=== PATIENT | female | born 1990 | race Caucasian/White ===

== ENCOUNTER 2020-01-01 12:47 | Outpatient (REF) | payer MEDICAID, SELFPAY ==
--- NOTE | 2020-01-01 12:59 | XR_ITS ---
EXAMINATION: XR BILATERAL HIPS WITH AP PELVIS CLINICAL INFORMATION: Bilateral hip pain. COMPARISON: None TECHNIQUE: 2 views of each hip. FINDINGS: RIGHT HIP: There is no visible acute fracture, dislocation or subluxation. There is no bony erosive changes. The soft tissues are normal. LEFT HIP: There is no visible acute fracture, dislocation subluxation. No bony erosive changes. No loose bodies. The soft tissues are normal. XR/XR hips CALVIN min 3V IMPRESSION: Unremarkable bilateral hip exam.
== END 2020-01-01 12:48 | disposition home or self-care (01) ==
LOC: HO.XRAY 12:47
PROVIDERS: PCP Internal Medicine Geriatric Medicine; Visit Provider Internal Medicine Geriatric Medicine
DX: G89.29 Other chronic pain (principal); M25.551 Pain in right hip; M25.552 Pain in left hip
CPT/HCPCS: 73522

== ENCOUNTER 2020-03-18 16:33 | Outpatient (REF) | payer MEDICAID, SELFPAY ==
--- NOTE | 2020-03-18 | XR_ITS ---
EXAMINATION: XR CERVICAL SPINE CLINICAL INFORMATION: Bilateral arm numbness COMPARISON: None TECHNIQUE: 6 views of the cervical spine, including bilateral oblique views, were obtained. FINDINGS: The vertebral alignment is normal. No intrinsic bony abnormality. The disc heights and neural foramina are well maintained. The endplates and posterior elements are normal. No fracture or subluxation. The surrounding prevertebral soft tissues are unremarkable. XR/XR cervical spine 5V IMPRESSION: Unremarkable examination.
== END 2020-03-18 16:34 | disposition home or self-care (01) ==
LOC: HO.XRAY 16:33
PROVIDERS: PCP Internal Medicine Geriatric Medicine; Visit Provider Emergency Medicine
DX: M25.50 Pain in unspecified joint (principal)
CPT/HCPCS: 72050

== ENCOUNTER 2021-05-03 15:28 | Outpatient (REF) | payer MEDICAID, SELFPAY ==
--- NOTE | ~2021-05-03 | XR_ITS ---
EXAMINATION: XR HIP, RIGHT XR HIP, LEFT CLINICAL INFORMATION: Bilateral hip pain. COMPARISON: Bilateral hip radiographs dated 01/01/2020. TECHNIQUE: AP and frog-leg lateral views of the right and left hip. FINDINGS: RIGHT HIP: No acute fracture or dislocation. No joint space narrowing or marginal osteophytes. No osseous erosion. No abnormal soft tissue calcification. LEFT HIP: No acute fracture or dislocation. No joint space narrowing or marginal osteophytes. No osseous erosion. No abnormal soft tissue calcification. XR/XR hip RT min 2V IMPRESSION: RIGHT HIP: Unremarkable examination. LEFT HIP: Unremarkable examination.
--- NOTE | ~2021-05-03 | XR_ITS ---
EXAMINATION: XR HIP, RIGHT XR HIP, LEFT CLINICAL INFORMATION: Bilateral hip pain. COMPARISON: Bilateral hip radiographs dated 01/01/2020. TECHNIQUE: AP and frog-leg lateral views of the right and left hip. FINDINGS: RIGHT HIP: No acute fracture or dislocation. No joint space narrowing or marginal osteophytes. No osseous erosion. No abnormal soft tissue calcification. LEFT HIP: No acute fracture or dislocation. No joint space narrowing or marginal osteophytes. No osseous erosion. No abnormal soft tissue calcification. XR/XR hip LT min 2V IMPRESSION: RIGHT HIP: Unremarkable examination. LEFT HIP: Unremarkable examination.
--- NOTE | ~2021-05-03 | XR_ITS ---
EXAMINATION: XR HAND, RIGHT XR HAND, LEFT CLINICAL INFORMATION: Pain. COMPARISON: None TECHNIQUE: AP, oblique, and lateral views of the right and left hand. FINDINGS: RIGHT HAND: No fracture or dislocation. Normal carpal alignment. No significant joint space narrowing or marginal osteophytes. No osseous erosion. No periarticular osteopenia. No abnormal soft tissue calcification. LEFT HAND: No fracture or dislocation. Normal carpal alignment. No significant joint space narrowing or marginal osteophytes. No osseous erosion. No periarticular osteopenia. No abnormal soft tissue calcification. XR/XR hand LT min 3V IMPRESSION: RIGHT HAND: Unremarkable examination. LEFT HAND: Unremarkable examination.
--- NOTE | ~2021-05-03 | XR_ITS ---
EXAMINATION: XR LUMBOSACRAL SPINE CLINICAL INFORMATION: Pain. COMPARISON: Lumbar spine radiograph dated 12/11/2017. TECHNIQUE: Three views of the lumbosacral spine. FINDINGS: The vertebral bodies and posterior elements are normal. The disc spaces are preserved and the vertebral alignment is normal. The paraspinal soft tissues are normal. XR/XR lumbar spine 2-3V IMPRESSION: Unremarkable examination.
--- NOTE | ~2021-05-03 | XR_ITS ---
EXAMINATION: XR HAND, RIGHT XR HAND, LEFT CLINICAL INFORMATION: Pain. COMPARISON: None TECHNIQUE: AP, oblique, and lateral views of the right and left hand. FINDINGS: RIGHT HAND: No fracture or dislocation. Normal carpal alignment. No significant joint space narrowing or marginal osteophytes. No osseous erosion. No periarticular osteopenia. No abnormal soft tissue calcification. LEFT HAND: No fracture or dislocation. Normal carpal alignment. No significant joint space narrowing or marginal osteophytes. No osseous erosion. No periarticular osteopenia. No abnormal soft tissue calcification. XR/XR hand RT min 3V IMPRESSION: RIGHT HAND: Unremarkable examination. LEFT HAND: Unremarkable examination.
== END 2021-05-03 15:29 | disposition home or self-care (01) ==
LOC: HO.XRAY 15:28
PROVIDERS: PCP Internal Medicine Geriatric Medicine; Visit Provider Internal Medicine Geriatric Medicine
DX: M54.50 Low back pain, unspecified (principal); M25.551 Pain in right hip; M25.552 Pain in left hip; M79.642 Pain in left hand; M79.641 Pain in right hand; M79.89 Other specified soft tissue disorders
CPT/HCPCS: 72100; 73130; 73502